=== PATIENT | female | born 1955 | race Caucasian/White ===

== ENCOUNTER 2023-06-15 19:19 | Emergency (ER) | payer OTHER, SELFPAY ==
[2023-06-15 19:20] VITALS: BP 148/86
--- NOTE | 2023-06-15 19:33 | ED.GENMED ---
History of Present Illness
General
Chief Complaint: Foreign Body Ingestion
Source: patient
Exam Limitations: none
Time Seen by Provider: 06/15/23 19:29
Nursing documentation reviewed up to this point in time: agreed with
Travel History
Have you had any contact with someone who has COVID-19?: No
Do you have any symptoms of coronavirus? Fever > 100 degrees, chills, cough, shortness of breath, sore throat, loss of taste or smell, muscle aches, or headache?: No
History of Present Illness
History of Present Illness:
Patient is a 67-year-old female presents to the emergency department stating she accidentally swallowed a piece of the ceramic spoon while eating ice cream. Patient denies any difficulty breathing or coughing. Patient denies any abdominal pain,
nausea or vomiting. Patient denies feeling distended. The spoon as she showed me has a covering that came off and was approximately 0.5 cm in diameter.
Past History
Past History
ED Past Medical History: Other (osteoporosis, GERD, breast ca)
ED Past Surgical History: Other (Mastectomy)
Social History
Tobacco: Non-smoker
Alcohol: Occasional
Drug: None
Personal: Single
Living: alone
Employment: Retired
Family History
Family History: Other
Review of Systems
Review of Systems
All Other Systems: Not applicable
Phy Exam
Physical Exam
Physical Exam:
Physical Exam
General: No apparent distress, alert and appropriate, well nourished, well hydrated
HENT: Normocephalic, supple with no lymphadenopathy, no thyromegaly
Eyes: Clear sclera, conjuctiva without injection
Neuro: Alert and oriented x 3, CN II - XII intact, no motor focality, no cerebellar dysfunction
Skin: no rash
Psychiatric: well kept. interactive and cooperative
Extremities: No edema, cyanosis
Course
Vital Signs
Initial and Last Documented VS:
Initial Vital Signs
Temp Pulse Resp BP Pulse Ox
97.8 F 96 18 148/86 98
06/15/23 19:20 06/15/23 19:20 06/15/23 19:20 06/15/23 19:20 06/15/23 19:20
Last Documented Vital Signs
Temp Pulse Resp BP Pulse Ox
97.8 F 96 18 148/86 98
06/15/23 19:20 06/15/23 19:20 06/15/23 19:20 06/15/23 19:20 06/15/23 19:20
*Critical Care Note
Total Time (30-74mins, 75-104mins- exclusive of procedures): Not Applicable
Update Note
Update Note:
The piece is small enough even though potentially with sharp edges that will pass without difficulty. Explained to the patient if she had increasing pain or anything to please return but it should pass without difficulty and that she did not need
to check her stools.
ED Attending Note
-
Portions of this chart may have been created with voice recognition software.� Occasional wrong word or��sound alike� substitutions may have occurred due to the inherent limitations of voice recognition software.
Discharge Plan
Departure
Patient Disposition: Home (Routine Discharge)
Date of Disposition: 06/15/23
Time of Disposition: 19:33
Patient with high blood pressure during this ER visit?: No
Condition: Good
Covid-19: Not Applicable
Discharge Problem:
Foreign body, swallowed
Instructions: Swallowed Objects, Adult (DC)
Prescriptions:
No Action
risedronate [Actonel] 30 MG tablet
30 mg PO WEEKLY
Activity Restrictions/Additional Instructions:
Any increasing pain or vomiting please return otherwise no specific treatment.
Interventions
Interventions:
*Risk Screen - Suicide Last Done: 06/15/23 19:20
*Neglect/Abuse Screening Last Done: 06/15/23 19:20
== END 2023-06-15 19:49 | disposition home or self-care (01) ==
LOC: EMR 19:19
PROVIDERS: EMERGENCY PHYSICIAN Emergency Medicine
DX: T18.9XXA Foreign body of alimentary tract, part unspecified, initial encounter (principal); X58.XXXA Exposure to other specified factors, initial encounter; K21.9 Gastro-esophageal reflux disease without esophagitis; M81.0 Age-related osteoporosis without current pathological fracture; I34.1 Nonrheumatic mitral (valve) prolapse; Z85.3 Personal history of malignant neoplasm of breast; Z90.10 Acquired absence of unspecified breast and nipple
CPT/HCPCS: 99282

== ENCOUNTER 2024-05-28 22:21 | Emergency (ER) | payer OTHER, SELFPAY ==
[2024-05-28 22:45] VITALS: BMI 17.3
--- NOTE | 2024-05-28 23:51 | ED.GENMED ---
Addendum entered and electronically signed by Shivani Weeks NP 06/01/24 08:28:
Wound culture grew out no organisms. Patient was notified
Original Note:
History of Present Illness
General
Chief Complaint: Skin Problem
Source: patient
Exam Limitations: none
Time Seen by Provider: 05/28/24 23:10
Nursing documentation reviewed up to this point in time: agreed with
History of Present Illness
History of Present Illness:
68-year-old female with history as documented presents for evaluation of redness of the left ear. Patient reports that she noted some redness and irritation of the left auricle a few days ago. She was seen by her tong setter Friday who felt
that it was seborrheic dermatitis. She says has a history of staph infections and so although her tong setter felt it was not infected she decided to apply topical mupirocin. Despite this measure she says that redness and itchiness have
increased and so she came to the ER to be evaluated. She denies any drainage from the ears or hearing issues. She denies any other complaints.
Past History
Past History
ED Past Medical History: Other (osteoporosis, GERD, breast ca)
ED Past Surgical History: Other (Mastectomy)
Social History
Tobacco: Non-smoker
Alcohol: Occasional
Drug: None
Personal: Single
Living: alone
Employment: Retired
Family History
Family History: Other
Review of Systems
Review of Systems
All Other Systems: ROS reviewed and negative except as documented in HPI and ROS
EENT: Reports other (Redness, soreness and itchiness of the ear)
Phy Exam
Physical Exam
Physical Exam:
General: Well appearing and non-toxic
HEENT: protecting airway; left TM clear, no erythema or tenderness to the mastoid process; exam of the external ear she has some slight erythema and tenderness along the inner fold of the jazmyne of the helix, no pustule noted and no swelling
Neck: appears supple
CV: No evidence of cyanosis
Resp: No accessory muscle use
Abd: Non-distended
Extremities: No deformities
Neuro: Alert
Psych: Normal affect
Skin: Intact
Scores
Heart Failure Risk
Heart Failure Risk Score: Not Applicable
Heart Score for Chest Pain Patients
STEMI patient?: Not applicable
Withdrawal Assessment of Alcohol
Withdrawal Assessment Completed?: Not applicable
Course
Orders/Labs/Results
Orders:
Orders
05/28/24 23:30
Wound Culture [Wound/Abscess/Other Culture] Urgent
MASSIMO Source: Skin Surface
Specimen Description:
Date Specimen was Collected: 05/28/24
Time Specimen was Collected: 23:28
Vital Signs
Initial and Last Documented VS:
Initial Vital Signs
Temp Pulse Resp Pulse Ox
36.7 C 65 18 99
05/28/24 22:23 05/28/24 22:23 05/28/24 22:23 05/28/24 22:23
Last Documented Vital Signs
Temp Pulse Resp Pulse Ox
36.7 C 65 18 98
05/28/24 22:23 05/28/24 22:23 05/28/24 22:23 05/28/24 23:41
MDM/Problems Addressed
Differential Diagnosis Includes:
Perichondritis, folliculitis, seborrheic dermatitis
MDM/Problems Addressed:
68-year-old female presents with slight redness, soreness and itchiness localized on the external ear that has not improved with mupirocin. She was seen by specialist and was told it was likely seborrheic dermatitis but she is concerned that there
is an infection. She is requesting a bacterial swab�we can send a skin swab advised that it will return in 24 to 48 hours. Advised to discontinue mupirocin and can trial a short course of oral antibiotic. She is comfortable with this plan.
Follow-up with outpatient physician. All questions answered.
*Pulse Oximetry
Patient hypoxic: no
*Critical Care Note
Total Time (30-74mins, 75-104mins- exclusive of procedures): Not Applicable
Data Reviewed
Source: patient
ED Attending Note
-
Portions of this chart may have been created with voice recognition software.� Occasional wrong word or��sound alike� substitutions may have occurred due to the inherent limitations of voice recognition software.
Discharge Plan
Departure
Patient Disposition: Home (Routine Discharge)
Date of Disposition: 05/28/24
Time of Disposition: 23:28
Patient with high blood pressure during this ER visit?: No
Discharge Problem:
Perichondritis of auricle
Instructions: Ear infections in adults
Prescriptions:
New
levofloxacin 750 mg tablet
750 mg PO DAILY Qty: 5 0RF
No Action
risedronate [Actonel] 30 MG tablet
30 mg PO WEEKLY
mupirocin 2 % Ointment
1 applic TOPICAL BID
Referrals:
Neena Carranza MD [Family Provider] - Follow up in 5-7 days
Activity Restrictions/Additional Instructions:
Thank you for visiting the Emergency Department at [facility].
1. Please schedule a follow up appointment as directed. Call first thing tomorrow morning to make an appointment.
2. If indicated, please take your medications as instructed and indicated on discharge paperwork.
3. If any of your symptoms do not improve, or persist, or become more severe within 6-12 hours, please return to the emergency department for further care.
4. Please return to the emergency department if you develop a headache, neck pain/stiffness, fever greater than 100.4F, chest pain, shortness of breath, persistent nausea, vomiting, slurred speech, difficulty walking, numbness/tingling, weakness,
signs of infection or any other symptoms that are worrisome to you.
Please call [phone] if you have any questions.
Interventions
Interventions:
*Risk Screen - Suicide Last Done: 05/28/24 22:23
*General Assessment Last Done: 05/28/24 22:23
*Neglect/Abuse Screening Last Done: 05/28/24 22:23
ED- Fall Risk Assessment Last Done: 05/28/24 22:46
*ED COVID-19 Vaccine History Last Done: 05/28/24 22:23
*Nursing Disposition Last Done: 05/28/24 23:41
ED-Skin Assessment Last Done: 05/28/24 22:59
Discharge Date and Time
Discharge Date/Time: 05/28/24 23:42
Print Language: BENGALI
== END 2024-05-28 23:42 | disposition home or self-care (01) ==
LOC: EMR 22:21
PROVIDERS: EMERGENCY PHYSICIAN Emergency Medicine; FAMILY PHYSICIAN Internal Medicine
DX: H61.002 Unspecified perichondritis of left external ear (principal); K21.9 Gastro-esophageal reflux disease without esophagitis; M81.0 Age-related osteoporosis without current pathological fracture; Z85.3 Personal history of malignant neoplasm of breast
CPT/HCPCS: 99283; 87070; 87205

== ENCOUNTER 2024-06-27 15:37 | Emergency (ER) | payer OTHER, SELFPAY ==
[2024-06-27] VITALS (8 sets, daily range): BP systolic 109–146; BP diastolic 66–83; BMI 16.1
[2024-06-27 15:55] LABS: % Basophils 0.3 % (0-2); % Eosinophils 1.6 % (0-6); % Immature Granulocytes 0.4 % (0-0.5); % Lymphocytes 20.3 % (20.5-51.1); % Monocytes 6.5 % (1.7-9.3); % Neutrophils 70.9 % (42.2-75.2); Absolute Eosinophils 0.1 10^3/uL (0-0.7); Absolute Lymphocytes 1.5 10^3/uL (1.2-3.4); Absolute Monocytes 0.5 10^3/uL (0.1-0.6); Absolute Neutrophils 5.3 10^3/uL (1.4-6.5); Hematocrit 36.3 % (37.0-47.0); Hemoglobin 12.4 g/dL (12.0-16.0); Mean Corp Hgb Conc. 34.2 g/dL (33.0-37.0); Mean Corpuscular Hgb 32.1 pg (27.0-31.0); Mean Platelet Volume 8.4 fL (7.4-10.4); Nucleated Red Blood Cells % 0 %; Platelet Count 264 10^3/uL (130-400); Red Blood Cell Count 3.86 10^6/uL (4.20-5.40); Red Cell Dist. Width 12.7 % (11.5-14.5); White Blood Cell Count 7.5 10^3/uL (4.8-10.8)
[2024-06-27 16:16] LABS: ALT (SGPT) 16 U/L (0-35); AST (SGOT) 24 U/L (14-36); Albumin 4.3 g/dl (3.5-5.0); Alkaline Phosphatase 65 U/L (38-126); Blood Urea Nitrogen 11 mg/dl (7-17); Calcium 9.6 mg/dl (8.4-10.2); Carbon Dioxide 26 mmol/L (22-30); Chloride 100 mmol/L (98-107); Glucose 101 mg/dl (70-99); Lipase 72 U/L (23-300); Potassium 3.7 mmol/L (3.5-5.1); Sodium 135 mmol/L (135-145); Total Bilirubin 0.6 mg/dl (0.2-1.3); Total Protein 6.5 g/dl (6.3-8.2); eGFR > 60.00
[2024-06-27] MEDS: NSS 500 IV ×2 (18:33→21:02)
[2024-06-27] MEDS: ZOFRAN 4 MG IV (18:35)
[2024-06-27] MEDS: OFIRMEV 100 IV (18:47)
[2024-06-27 19:08] LABS: COVID-19 Antigen Negative (Negative)
[2024-06-27] MEDS: TORADOL 15 MG IV (20:02)
[2024-06-27] MEDS: BENADRYL 25 MG IV (20:21)
[2024-06-27] MEDS: REGLAN 10 MG IV (20:28)
--- NOTE | 2024-06-27 21:49 | ED.GENMED ---
History of Present Illness
<Suzan Cary PA-C - Last Filed: 06/27/24 23:14>
General
Chief Complaint: Abdominal Symptoms
Source: patient
Exam Limitations: none
Time Seen by Provider: 06/27/24 17:26
Nursing documentation reviewed up to this point in time: agreed with
History of Present Illness
History of Present Illness:
Patient is a 68-year-old female with history mitral valve prolapse, GERD presenting to the emergency department for evaluation of headache. Patient states around 4 PM today she had a somewhat acute onset headache which then gradually worsened and
spread throughout her left side of her head. She also reports nausea and dry heaves. She did have 1 episode of diarrhea, as well. Patient denies any significant abdominal pain. No dysuria or other urinary symptoms. No fevers or chills. Patient
denies any visual changes, dizziness, numbness/tingling, severe back pain, or weakness.
Patient denies any recent viral illnesses. No cough or sore throat.
Patient without history of similar headaches. Patient is not on any blood thinners.
Past History
<Suzan Cary PA-C - Last Filed: 06/27/24 23:14>
Past History
ED Past Medical History: Other (osteoporosis, GERD, breast ca)
ED Past Surgical History: Other (Mastectomy)
Social History
Tobacco: Non-smoker
Alcohol: Occasional
Drug: None
Personal: Single
Living: alone
Employment: Retired
Family History
Family History: Other
Review of Systems
<Suzan Cary PA-C - Last Filed: 06/27/24 23:14>
Review of Systems
Allergies reviewed?: Yes
All Other Systems: ROS reviewed and negative except as documented in HPI and ROS
Phy Exam
<Suzan Cary PA-C - Last Filed: 06/27/24 23:14>
Physical Exam
Physical Exam:
Vitals: Hypertensive, otherwise vital signs stable. Afebrile
General: Patient is moderate distress due to pain
Skin: Warm and dry, no rashes or lesions
Head: Normocephalic, atraumatic. No reproducible scalp tenderness
Eyes: Sclera nonicteric. EOMs intact. Pupils equal round reactive to light bilaterally. No nystagmus.
Throat: Protecting airway
Neck: Normal ROM, no cervical spine tenderness, no meningismus
Cardiac: Regular rate and rhythm, no murmurs.
Pulm: Normal respiratory effort, no wheezes, rales, rhonchi heard on exam.
Abdomen: Abdomen soft. No abdominal tenderness.
Extremities: No evidence of cyanosis or edema. Strength 5 out of 5 in upper and lower extremities.
Neuro: AAOx3. CN II-XII intact. No focal neurologic deficits. No facial droop or asymmetry. Fluid speech.
Psychiatric: Normal affect.
Course
<Suzan Cary PA-C - Last Filed: 06/27/24 23:14>
Orders/Labs/Results
Orders:
Orders
06/27/24 15:49
Complete Blood Count/With Diff Urgent
Comprehensive Metabolic Panel Urgent
Lipase Urgent
06/27/24 17:[address] [CT Head W/o Iv Contrast] Urgent
Comment:
Reason For Exam: sudden onset severe headache, +nausea, no injury
06/27/24 18:20
0.9% Sodium Chloride 500 ml [Nss] 500 ml IV BOLUS
Acetaminophen [Tylenol] 650 mg PO NOW STA
Ondansetron Injectable [Zofran] 4 mg IV NOW STA
06/27/24 18:22
Electrocardiogram (*1) Urgent
Reason for Study: Abdominal Pain
EKG- Treatment ONCE
06/27/24 18:37
COVID-19 Antigen Urgent
Source: Nasal Swab
Influenza A+B Rapid Molecular Urgent
MASSIMO Source: Nasal Swab
Specimen Description:
06/27/24 18:41
Acetaminophen 1000MG/100Ml [Ofirmev] 1,000 mg in 100 ml IV ONCE
Acetaminophen IV Indication:: ED Narcotic Naive Pt-ONCE
06/27/24 18:42
Acetaminophen 1000MG/100Ml [Ofirmev] 1,000 mg in 100 ml .ROUTE .STK-MED
06/27/24 19:55
Diphenhydramine [Benadryl] 25 mg IV NOW STA
Metoclopramide [Reglan] 10 mg IV NOW STA
06/27/24 19:59
Ketorolac [Toradol] 15 mg IV NOW STA
06/27/24 20:12
Diphenhydramine [Benadryl] 25 mg IV NOW STA
Metoclopramide [Reglan] 10 mg IV NOW STA
06/27/24 21:02
0.9% Sodium Chloride 500 ml [Nss] 500 ml IV BOLUS
06/27/24 22:44
Ondansetron Orally Disint [Zofran Odt (Orally Disintegrating)] 4 mg PO NOW STA
Abnormal Lab Results
06/27/24
15:49
RBC 3.86 L 10^6/uL
(4.20-5.40)
Hct 36.3 L %
(37.0-47.0)
MCH 32.1 H pg
(27.0-31.0)
Lymphocytes % 20.3 L %
(20.5-51.1)
Glucose 101 H mg/dl
(70-99)
06/27/24 15:49
06/27/24 15:49
Vital Signs
Initial and Last Documented VS:
Initial Vital Signs
Temp Pulse Resp BP Pulse Ox
97.5 F 89 16 146/83 100
06/27/24 15:40 06/27/24 15:40 06/27/24 15:40 06/27/24 15:40 06/27/24 15:40
Last Documented Vital Signs
Temp Pulse Resp BP Pulse Ox
98.5 F 85 25 116/66 95
06/27/24 16:56 06/27/24 22:42 06/27/24 17:00 06/27/24 22:42 06/27/24 22:42
<Ashley Curry MD - Last Filed: 06/27/24 22:51>
Orders/Labs/Results
Orders:
Orders
06/27/24 15:49
Complete Blood Count/With Diff Urgent
Comprehensive Metabolic Panel Urgent
Lipase Urgent
06/27/24 17:[address] [CT Head W/o Iv Contrast] Urgent
Comment:
Reason For Exam: sudden onset severe headache, +nausea, no injury
06/27/24 18:20
0.9% Sodium Chloride 500 ml [Nss] 500 ml IV BOLUS
Acetaminophen [Tylenol] 650 mg PO NOW STA
Ondansetron Injectable [Zofran] 4 mg IV NOW STA
06/27/24 18:22
Electrocardiogram (*1) Urgent
Reason for Study: Abdominal Pain
EKG- Treatment ONCE
06/27/24 18:37
COVID-19 Antigen Urgent
Source: Nasal Swab
Influenza A+B Rapid Molecular Urgent
MASSIMO Source: Nasal Swab
Specimen Description:
06/27/24 18:41
Acetaminophen 1000MG/100Ml [Ofirmev] 1,000 mg in 100 ml IV ONCE
Acetaminophen IV Indication:: ED Narcotic Naive Pt-ONCE
06/27/24 18:42
Acetaminophen 1000MG/100Ml [Ofirmev] 1,000 mg in 100 ml .ROUTE .STK-MED
06/27/24 19:55
Diphenhydramine [Benadryl] 25 mg IV NOW STA
Metoclopramide [Reglan] 10 mg IV NOW STA
06/27/24 19:59
Ketorolac [Toradol] 15 mg IV NOW STA
06/27/24 20:12
Diphenhydramine [Benadryl] 25 mg IV NOW STA
Metoclopramide [Reglan] 10 mg IV NOW STA
06/27/24 21:02
0.9% Sodium Chloride 500 ml [Nss] 500 ml IV BOLUS
06/27/24 22:44
Ondansetron Orally Disint [Zofran Odt (Orally Disintegrating)] 4 mg PO NOW STA
Abnormal Lab Results
06/27/24
15:49
RBC 3.86 L 10^6/uL
(4.20-5.40)
Hct 36.3 L %
(37.0-47.0)
MCH 32.1 H pg
(27.0-31.0)
Lymphocytes % 20.3 L %
(20.5-51.1)
Glucose 101 H mg/dl
(70-99)
06/27/24 15:49
06/27/24 15:49
Vital Signs
Initial and Last Documented VS:
Initial Vital Signs
Temp Pulse Resp BP Pulse Ox
97.5 F 89 16 146/83 100
06/27/24 15:40 06/27/24 15:40 06/27/24 15:40 06/27/24 15:40 06/27/24 15:40
Last Documented Vital Signs
Temp Pulse Resp BP Pulse Ox
98.5 F 85 25 116/66 95
06/27/24 16:56 06/27/24 22:42 06/27/24 17:00 06/27/24 22:42 06/27/24 22:42
<Suzan Cary PA-C - Last Filed: 06/27/24 23:14>
MDM/Problems Addressed
Differential Diagnosis Includes:
Not limited to: Migraine headache, tension headache, viral gastroenteritis, viral illness, acute dehydration, subarachnoid hemorrhage, etc.
MDM/Problems Addressed:
68-year-old female presenting with 1 day of headache, nausea, vomiting, diarrhea. No known fever, severe abdominal pain, other neurologic symptoms. Patient arrives hypertensive, otherwise with stable vital signs. Physical exam as above. Patient
mildly uncomfortable due to headache. Neurologically intact without any focal deficits. She has fluid speech and steady gait. No facial droop or asymmetry. Abdomen benign. Cardio/pulmonary assessment unremarkable.. Ultimately suspect viral
illness or migraine. Given acute onset nature�will obtain head CT. Will check basic labs, viral swabs, EKG. Will treat IV Tylenol and IV fluids pending head CT.
Update: Head CT shows no evidence of intracranial hemorrhage or other acute abnormality. On reassessment�patient still reporting severe headache with nausea/vomiting. Will give migraine cocktail and reassess. Lab work without acute abnormalities.
Viral swabs are negative. EKG shows normal sinus rhythm without acute ischemic changes.
Update 9:45 PM: Into reassess patient at bedside he was sleeping comfortably. I did wake patient up who states she feels her headache has improved following migraine cocktail. She reports headache pain 4/10 at this time much improved from 10/10 on
arrival. She was up and ambulating to bathroom without difficulty. She does not seem to be vomiting anymore in department. Given associated nausea, vomiting, and diarrhea with headache�clinical suspicion for viral illness high. Given negative
head CT and no focal neurologic deficits�doubt central process. Did advise patient if headaches persist she may need to obtain MRI outpatient. Feel patient stable for discharge home with supportive care and primary care follow-up. Patient seen
with attending physician
Chronic conditions affecting care:
Mitral valve prolapse
Acute Exacerbation and/or Progression of Chronic Illness:
N/A
<Suzan Cary PA-C - Last Filed: 06/27/24 23:14>
*Radiology
Radiology exam reviewed: preliminary read by ED provider (head CT reviewed by me-no acute abnormality) and radiology read reviewed
*Pulse Oximetry
Patient hypoxic: no
*EKG
Interpreted by ED Provider?: Yes
Interpretation: normal
Comparison EKG: no changes
Heart Rate: 80
Rate: normal
Rhythm: sinus
[place]: normal axis
Interval: normal interval
QRS Pattern: normal QRS
Ischemia: no ischemia
*Interior Decorator Interpretation
Rate: Interior Decorator- N/A
*Critical Care Note
Total Time (30-74mins, 75-104mins- exclusive of procedures): Not Applicable
ED Attending Note
<Suzan Cary PA-C - Last Filed: 06/27/24 23:14>
-
Portions of this chart may have been created with voice recognition software.� Occasional wrong word or��sound alike� substitutions may have occurred due to the inherent limitations of voice recognition software.
<Ashley Curry MD - Last Filed: 06/27/24 22:51>
ED Attending Note
Patient seen and examined by attending physician: Yes
I performed the substantive portion of visit, reviewed & personally made and approve the management plan that is documented in note by myself or REGINALDO.: Yes
ED Attending Note:
I have seen and evaluated the patient with a [id number] encounter. I have spoken to the [PA] and involved in the medical history, the physical exam, medical decision making.
Evaluation and management service: agree unless noted differently below.
Results interpretation: agree unless noted differently below.
Patient is a 68-year-old woman presenting to the emergency department with headache nausea vomiting diarrhea. Patient states that at 4 PM she developed a headache that was to the left side of her head. Gradually worsen. No history of headaches.
She is having some light sensitivity. She also been having nausea as well as diarrhea. She is been having bodyaches as well. No numbness tingling. No weakness. No weight loss. No neck pain or neck stiffness. No sick contacts.
On exam patient is resting comfortably. She does not have any focal neurodeficits. Her abdomen is soft nondistended nontender.
68-year-old female presenting to the emergency room with 1 day of headache nausea diarrhea body aches. Vitals are notable for being afebrile. Exam is reassuring. Likely the beginnings of a viral illness. Considered subarachnoid hemorrhage for
patient given the headache however less likely. CT scan of the head obtained within 4 hours of headache onset. Per my interpretation no subarachnoid hemorrhage. Blood work is negative. Her viral swab was negative here. She did receive a
migraine cocktail which did improve the headache. Patient was educated that this could be the beginnings of a viral illness given the body aches nausea diarrhea. Patient educated on flu treatment. Will discharge patient with a prescription for
Zofran. Patient advised to get an outpatient MRI if headaches are persistent after this illness.
Discharge Plan
Departure
Patient Disposition: Home (Routine Discharge)
Date of Disposition: 06/27/24
Time of Disposition: 22:42
Patient with high blood pressure during this ER visit?: No
Condition: Good
Covid-19: Not Applicable
Discharge Problem:
Headache, Nausea, vomiting, and diarrhea
Instructions: Nausea and Vomiting, Adult (DC), Headaches in adults, BLOOD PRESSURE
Prescriptions:
New
ondansetron 4 mg tablet,disintegrating
4 mg PO Q8H PRN (Reason: nausea and vomiting) Qty: 6 0RF
No Action
risedronate [Actonel] 30 MG tablet
30 mg PO WEEKLY
mupirocin 2 % Ointment
1 applic TOPICAL BID
levofloxacin 750 mg tablet
750 mg PO DAILY Qty: 5 0RF
Referrals:
[email or web address] [Provider Group]
NONE,* [Family Provider] -
Activity Restrictions/Additional Instructions:
Return to the emergency department with any severe headache, intractable nausea/vomiting, changes in mental status, high fevers, chest pain/shortness of breath, worsening in current symptoms, or any other concerns
-As discussed your lab work and viral testing was normal in the emergency department. Your head CT showed no acute abnormalities. If headaches persist�you should follow-up for outpatient MRI
-It is possible you have an underlying viral illness. You can take Zofran up to every 8 hours as needed for persistent nausea/vomiting. Is important stay well-hydrated. Take Tylenol and/or Motrin as needed for headache
-Follow-up with PCP for further evaluation/management as needed
Monitor your symptoms closely return to the emergency department with any acute worsening/new symptoms or any other concerns
Interventions
Interventions:
*Risk Screen - Suicide Last Done: 06/27/24 15:40
*General Assessment Last Done: 06/27/24 15:40
*Neglect/Abuse Screening Last Done: 06/27/24 15:40
*ED COVID-19 Vaccine History Last Done: 06/27/24 15:40
UM-Ulbljn-Evbmsuodvx Assessment Last Done: 06/27/24 16:57
Discharge Date and Time
Print Language: DIVEHI
[2024-06-27] MEDS: ZOFRAN ODT (ORALLY DISINTEGRATING) 4 MG PO (22:50)
== END 2024-06-27 23:13 | disposition home or self-care (01) ==
LOC: EMR 15:37
PROVIDERS: Physician Assistant; Student in an Organized Health Care Education/Training Program; EMERGENCY PHYSICIAN Student in an Organized Health Care Education/Training Program
DX: R51.9 Headache, unspecified (principal); R11.2 Nausea with vomiting, unspecified; R19.7 Diarrhea, unspecified; K21.9 Gastro-esophageal reflux disease without esophagitis; I34.1 Nonrheumatic mitral (valve) prolapse; Z85.3 Personal history of malignant neoplasm of breast
CPT/HCPCS: 99284; 96374; 96375; 96361; 70450; 80053; 83690; 85025; 87502; 87811; 93005

== ENCOUNTER 2024-08-13 15:34 | Emergency (ER) | payer OTHER, SELFPAY ==
[2024-08-13 15:42] VITALS: BP 172/93
--- NOTE | 2024-08-13 17:19 | ED.SKININJ ---
HPI-Injury
General
Chief Complaint: Bite
Source: patient
Exam Limitations: none
Time Seen by Provider: 08/13/24 16:31
Nursing documentation reviewed up to this point in time: agreed with
History of Present Illness-Injury
Is this injury a work related problem?: No
Is pt an associate of [facility]?: No
Initial Injury comments:
Patient is a 69-year-old female history MVP, GERD presenting to the emergency department for rabies vaccine. Patient states she was bit by her neighbors dog on her right thigh this afternoon. She reports the dog is 'late for the vaccinations '.
Patient was seen at an urgent care facility directly following bite where wound was thoroughly irrigated and patient was started on a course of prophylactic Augmentin. It was recommended the patient initiate the rabies vaccination series of his
sent to the emergency department.
Patient denies any prior history of rabies vaccination series. She is otherwise up-to-date on vaccines.
Past History
Past History
ED Past Medical History: Other (osteoporosis, GERD, breast ca)
ED Past Surgical History: Other (Mastectomy)
Social History
Tobacco: Non-smoker
Alcohol: Occasional
Drug: None
Personal: Single
Living: alone
Employment: Retired
Family History
Family History: Other
Review of Systems
Review of Systems
Allergies reviewed?: Yes
All Other Systems: ROS reviewed and negative except as documented in HPI and ROS
Phy Exam
Physical Exam
Physical Exam:
Vitals: Hypertensive, otherwise vital signs are stable. Afebrile
General: Patient is well appearing, no acute distress
Skin: Approximately 1.5 cm by to right anterior thigh without active bleeding.
Head: Normocephalic, atraumatic
Throat: Protecting airway
Neck: Normal ROM, no cervical spine tenderness
Cardiac: Regular rate
Pulm: No apparent respiratory distress
Abdomen: Nondistended
Extremities: No evidence of cyanosis or edema
Neuro: Grossly intact
Psychiatric: Normal affect.
Course
Orders/Labs/Results
Orders:
Orders
08/13/24 17:24
Rabies Immune Globulin/Pf [HyperRAB] 1,068 unit IM NOW STA
08/13/24 17:30
Rabies Vaccine (Pcec)/Pf [Rabavert Rabies Vacc W-Diluent] 2.5 unit IM .ONCE ONE
Vital Signs
Initial and Last Documented VS:
Initial Vital Signs
Temp Pulse Resp BP Pulse Ox
98.2 F 90 18 172/93 99
08/13/24 15:42 08/13/24 15:42 08/13/24 15:42 08/13/24 15:42 08/13/24 15:42
Last Documented Vital Signs
Temp Pulse Resp BP Pulse Ox
98.2 F 90 18 172/93 99
08/13/24 15:42 08/13/24 15:42 08/13/24 15:42 08/13/24 15:42 08/13/24 15:42
MDM/Problems Addressed
Differential Diagnosis Includes:
Not limited to: Dog bite, need for rabies prophylaxis, etc.
MDM/Problems Addressed:
69 year old female presenting from urgent care after minor bite today from unvaccinated dog for rabies vaccination. Hypertensive, otherwise vitals stable. Physical exam as above. Patient presents directly from urgent care where wound was irrigated
thoroughly and patient started on prophylactic Augmentin. Patient up to date on tetanus shot. Wound without any active bleeding on my examination. Discussed options vs patient including quarantine/monitoring dog (as it is a neighbors pet) vs
initiating rabies vaccination series. Patient would like to start vax series. Patient given immunoglobulin and dose 1 of rabies vaccination today. She tolerated vaccines well. Discussed remainder of vaccination schedule. She will follow with
infusion center for additional doses. She will continue abx as prescribed by urgent care. Return precautions discussed including signs of infection. Patient verbalized understanding.
Chronic conditions affecting care:
N/A
Acute Exacerbation and/or Progression of Chronic Illness:
N/A
*Pulse Oximetry
Patient hypoxic: no
*EKG
Interpreted by ED Provider?: NA
*Charging Board Operator Interpretation
Rate: Charging Board Operator- N/A
*Critical Care Note
Total Time (30-74mins, 75-104mins- exclusive of procedures): Not Applicable
ED Attending Note
-
Portions of this chart may have been created with voice recognition software.� Occasional wrong word or��sound alike� substitutions may have occurred due to the inherent limitations of voice recognition software.
Discharge Plan
Departure
Patient Disposition: Home (Routine Discharge)
Date of Disposition: 08/13/24
Time of Disposition: 17:43
Patient with high blood pressure during this ER visit?: Yes
Condition: Good
Covid-19: Not Applicable
Discharge Problem:
Rabies, need for prophylactic vaccination against
Instructions: Animal Bites (DC), BLOOD PRESSURE, Rabies
Prescriptions:
New
RabAvert (PF) 2.5 unit suspension for reconstitution
2.5 unit IM ONCE Qty: 3 0RF
Rx Instructions:
Inject 1mL on 08/16/24, 08/20/24, and 08/27/24
No Action
risedronate [Actonel] 30 MG tablet
30 mg PO WEEKLY
mupirocin 2 % Ointment
1 applic TOPICAL BID
levofloxacin 750 mg tablet
750 mg PO DAILY Qty: 5 0RF
ondansetron 4 mg tablet,disintegrating
4 mg PO Q8H PRN (Reason: nausea and vomiting) Qty: 6 0RF
Referrals:
Neena Carranza MD [Family Provider] -
Stand Alone Forms: Rabies Vaccine Post Exp Dosing
Activity Restrictions/Additional Instructions:
Return to the emergency department with any signs of reaction to vaccine or signs of infection around wound and colluding significant redness or swelling, pus draining from wound, red streaking away from wound, fevers, or any other concerns
- You were given the rabies immunoglobulin and dose one of the rabies vaccine today while in the emergency department. This is the first dose of a 4 dose vaccine series. You should have additional doses on 08/16/24, 08/20/24, and 08/27/24. These can
be done at the infusion center. Please call them Friday morning to schedule appointments. If you are unable to receive them in the infusion center�please return to the emergency department.
- As discussed�it is important that you continue to take the antibiotic as prescribed by urgent care. Keep wound clean and dry. Wash gently with soap and water and monitor very closely for signs of infection.
- Follow-up with primary care for further evaluation/management as needed
Monitor your symptoms closely and return to the emergency department with any acute worsening/new symptoms or any other concerns
Interventions
Interventions:
*Risk Screen - Suicide Last Done: 08/13/24 15:42
*General Assessment Last Done: 08/13/24 15:42
*Neglect/Abuse Screening Last Done: 08/13/24 15:42
*ED COVID-19 Vaccine History Last Done: 08/13/24 15:42
*Nursing Disposition Last Done: 08/13/24 18:00
ED-Skin Assessment Last Done: 08/13/24 16:42
Discharge Date and Time
Discharge Date/Time: 08/13/24 18:00
Print Language: HONDURAN
[2024-08-13] MEDS: RABAVERT RABIES VACC W-DILUENT 2.5 UNIT IM (17:37)
[2024-08-13] MEDS: HyperRAB 1068 UNIT IM (17:40)
== END 2024-08-13 18:00 | disposition home or self-care (01) ==
LOC: EMR 15:34
PROVIDERS: EMERGENCY PHYSICIAN Emergency Medicine; FAMILY PHYSICIAN Internal Medicine
DX: Z20.3 Contact with and (suspected) exposure to rabies (principal); S71.151A Open bite, right thigh, initial encounter; W54.0XXA Bitten by dog, initial encounter; R03.0 Elevated blood-pressure reading, without diagnosis of hypertension; Z29.14 Encounter for prophylactic rabies immune globulin; Z23 Encounter for immunization
CPT/HCPCS: 99284; 90471; 96372; 90375; 90675

== ENCOUNTER 2024-08-27 14:25 | Outpatient (RCR) | payer OTHER, SELFPAY ==
[2024-08-16 15:20] VITALS: BP 131/65
[2024-08-16] MEDS: RABAVERT RABIES VACC W-DILUENT 2.5 UNIT IM (15:38)
--- NOTE | 2024-08-16 15:54 | PTCARENOTE ---
Pt very resistant to answer admission questions, and when going through medical history and questions, pt became upset stating 'all of this just for a shot, this is rediculous.' Pt would not elaborate on dates and procedures when asked surgical
questions, also became irritated when asking other assessment questions also. and when offered to speak to community nurse, pt declined.
[2024-08-20 15:30] VITALS: BP 122/75
[2024-08-20] MEDS: RABAVERT RABIES VACC W-DILUENT 2.5 UNIT IM (15:42)
[2024-08-27 14:32] VITALS: BP 120/75
[2024-08-27] MEDS: RABAVERT RABIES VACC W-DILUENT 2.5 UNIT IM (14:37)
== END 2024-08-30 08:48 | disposition home or self-care (01) ==
LOC: OID 14:25
PROVIDERS: ATTENDING PHYSICIAN Emergency Medicine; FAMILY PHYSICIAN Internal Medicine
DX: Z20.3 Contact with and (suspected) exposure to rabies (principal); Z23 Encounter for immunization
CPT/HCPCS: 90471; 90675

== ENCOUNTER → 2024-08-31 11:25 | Outpatient (REF) | payer OTHER, SELFPAY | LOC: HWRAD 11:25 | PROVIDERS: ATTENDING PHYSICIAN Internal Medicine Endocrinology, Diabetes & Metabolism; FAMILY PHYSICIAN Internal Medicine | DX: M81.0 Age-related osteoporosis without current pathological fracture (principal) | CPT/HCPCS: 77080 ==